=== PATIENT | female | born 1970 | race African-American/Black ===

== ENCOUNTER 2017-06-09 12:40 | Inpatient (IN) | payer MEDICAID ==
[~2017-06-09] VITALS: Ht 162.6 cm; Wt 90.7 kg
[2017-06-09 12:47] VITALS: BP 149/86
--- NOTE | 2017-06-09 13:06 | NUR ---
Blood draw completed by PHLE[facility] in [place].
[2017-06-09 13:28] LABS: HEMATOCRIT 43.3 % (36-48); HEMOGLOBIN 13.9 g/dL (12.0-16.0); MEAN CORPUSCULAR HEMOGLOBIN 28 pg (27-31); MEAN CORPUSCULAR HGB CONC 32 g/dL (33-37); MEAN CORPUSCULAR VOLUME 88 fL (80-94); PLATELET COUNT (AUTO) 340 K/uL (140-450); RED CELL DISTRIBUTION WIDTH 13.4 % (11.6-13.7); WHITE BLOOD COUNT (AUTO) 16.8 K/uL (4.8-10.8)
[2017-06-09 13:34] LABS: ANION GAP 12.2 (8-16); CALCIUM 9.1 mg/dL (8.5-10.1); CARBON DIOXIDE 27.5 mmol/L (21-32); POTASSIUM 3.7 mmol/L (3.5-5.1)
[2017-06-09 13:39] LABS: APPEARANCE,URINE SL CLOUDY (CLEAR); BILIRUBIN,URINE 2+ (NEGATIVE); BLOOD, URINE 3+ (NEGATIVE); COLOR,URINE BROWN (YELLOW); LEUKOCYTE ESTERASE ,URINE 1+ (NEGATIVE); NITRITE, URINE POSITIVE (NEGATIVE); PROTEIN,URINE 2+ (NEGATIVE); UGLUCOSE NEGATIVE (NEGATIVE)
[2017-06-09 13:40] LABS: BAND % (MANUAL) 9 % (0-8); EOSINOPHILS % (MANUAL) 1 % (0-4); LYMPHOCYTES % (MANUAL) 4 % (20-46); MONOCYTES % (MANUAL) 4 % (5-12); NEUTROPHILS % (MANUAL) 82 (43-65); TOTAL BILIRUBIN 0.8 mg/dL (0.0-1.0); TOTAL PROTEIN, SERUM 7.8 g/dL (6.4-8.2)
[2017-06-09 13:41] LABS: PLATELET ESTIMATE ADEQUATE
[2017-06-09 14:01] LABS: ICTOTEST POSITIVE (NEGATIVE)
[2017-06-09 14:02] LABS: BACTERIA,URINE 2+ /HPF (None Seen); MUCUS,URINE 2+ /LPF (None Seen); SQUAMOUS EPITHELIAL CELL,UR 4-10 (MOD) /LPF (0-3 (FEW))
--- NOTE | 2017-06-09 14:49 | NUR ---
Patient transferred to bed 4 via wheelchair by tech. RN evaluating patient at bedside.
--- NOTE | 2017-06-09 15:03 | NUR ---
46 YO FEMALE C/O ABDOMINAL PAIN /, VOMITIED X1, DENIES DIARRHEA, CONSTIPATION, NAUSEA, HAS SOME DISCOMFORT UPON URINATING, DENIES BURNING SENSATION. A&OX4, GURNEY TO LOWEST LEVEL, BED RAIL UP, DR. CULP AT BEDSIDE EVALUATING PT.
[2017-06-09] MEDS ORDERED: MORPHINE SULFATE 4 MG/ML SYR IVP ONE ×2 (15:10→16:30)
[2017-06-09] MEDS ORDERED: ONDANSETRON 4 MG/2 ML VIAL IVP ONE (15:10)
[2017-06-09] MEDS ORDERED: cefTRIAXone 1,000 MG VIAL ONE (16:22)
--- NOTE | 2017-06-09 16:30 | NUR ---
A&OX4, VSS, PT RESTING ON GURNEY, GURNEY TO LOWEST LEVEL, BED RAIL UP.
[2017-06-09] MEDS ORDERED: MAGNESIUM HYDROXIDE 2400 MG/30 ML UDC PO PRN (16:55)
[2017-06-09] MEDS ORDERED: ACETAMINOPHEN 325 MG TAB PO PRN (16:55)
[2017-06-09] MEDS: DEXT 5% /NACL 0.9% 1,000 ML IV SCH (16:55)
[2017-06-09] MEDS ORDERED: ONDANSETRON 4 MG/2 ML VIAL IVP PRN (16:55)
[2017-06-09] MEDS ORDERED: LORazepam 2 MG/ML VIAL IVP PRN (16:55)
--- NOTE | 2017-06-09 17:25 | NUR ---
KEY ACCOUNT EXECUTIVE SHOWING ST @109HR.
--- NOTE | 2017-06-09 17:33 | NUR ---
Patient will be admitted to care of DR. Suyapa FRANCO. Admited to TELE. Will go to room 105B. Belongings list completed. Report to GILLIAN ROBLES.
--- NOTE | 2017-06-09 17:55 | NUR ---
PT ON UNIT FROM ER. PT STATES SHE HAS PAIN 10/10 FROM HER ABDOMEN. PT WAS PREVIOUSLY MEDICATED IN ER. PT STATES SHE WANTS TO SEE IF THAT WORKS. AAOX4. NO S/S OF ACUTE DISTRESS. IV SITE PATENT AND INTACT. PT'S DAUGHTER AT BEDSIDE. PT ORIENTED TO ROOM. TELE BOX IN PLACE. FALL PRECAUTIONS IN PLACE. CALL LIGHT WITHIN REACH. SAFETY MEASURES ENSURED. WILL CONTINUE TO MONITOR.
[2017-06-09 17:59] VITALS: BP 136/86
--- NOTE | 2017-06-09 19:18 | NUR ---
REPORT GIVEN TO NIGHT NURSE, PT REMAINS STABLE.
--- NOTE | 2017-06-09 19:20 | NUR ---
RECEIVED PATIENT REPORT AT BEDSIDE. PATIENT IS ALERT, AWAKE, AND ORIENTED. PATIENT COMPLAINS OF ABDOMINAL PAIN. PATIENT WAS MEDICATED. IV ACCESS AT LEFT AC, INTACT WITH IVF INFUSING WELL. PATIENT ON TELE MONITORING. BED ON LOWEST POSITION, SIDE RAILS UP, SEMI-FOWLERS. CALL LIGHT WITHIN REACH. WILL CONTINUE TO MONITOR.
[2017-06-09 19:30] VITALS: BP 144/84
--- NOTE | 2017-06-09 20:00 | NUR ---
PATIENT STATES THAT MORPHINE DOES NOT RELIEVE HER PAIN. PATIENT WANTS TO TRY NORCO. WILL CONTINUE TO MONITOR
[2017-06-09] MEDS: HYDROcodone/APAP 5/325 MG 1 TAB TAB PO PRN (20:03)
[2017-06-09] MEDS: metroNIDAZOLE 500 MG/NS PREMIX 100 ML IV SCH (20:05)
[2017-06-09] MEDS: CEFEPIME 2,000 MG in DEXTROSE 5% 100 ML IV SCH (21:27)
[2017-06-09] MEDS: MORPHINE SULFATE 2 MG/ML SYR IVP PRN (21:35)
[2017-06-09] MEDS: DOXYCYCLINE 100 MG in DEXTROSE 5% 250 ML IV SCH (22:56)
--- NOTE | 2017-06-10 | NUR ---
CHECKED ON PATIENT. PATIENT WAS ASLEEP. NO S/SX OF DISTRESS
[2017-06-10 00:05] VITALS: BP 125/75
[2017-06-10 04:00] VITALS: BP 123/91
--- NOTE | 2017-06-10 04:00 | NUR ---
VITAL SIGNS CHECKED. VITAL SIGNS WITHIN NORMAL LIMITS. PATIENT STATES THAT PAIN HAS SUBSIDED. WILL CONTINUE TO MONITOR
[2017-06-10] MEDS: DEXT 5% /NACL 0.9% 1,000 ML IV SCH ×3 (05:18→23:11)
[2017-06-10] MEDS: metroNIDAZOLE 500 MG/NS PREMIX 100 ML IV SCH ×3 (05:22→20:06)
[2017-06-10 05:55] LABS: BASOPHILS # (AUTO) 0.1 K/uL (0.00-0.22); BASOPHILS % (AUTO) 0.8 % (0.0-2.0); EOSINOPHILS # (AUTO) 0.1 K/uL (0-0.4); EOSINOPHILS % (AUTO) 1.2 % (0.0-4.0); HEMATOCRIT 37.5 % (36-48); HEMOGLOBIN 12.4 g/dL (12.0-16.0); LYMPHOCYTES % (AUTO) 8.6 % (20.5-51.1); MEAN CORPUSCULAR HEMOGLOBIN 29 pg (27-31); MEAN CORPUSCULAR HGB CONC 33 g/dL (33-37); MEAN CORPUSCULAR VOLUME 89 fL (80-94); MONOCYTES # (AUTO) 0.8 K/uL (0.8-1.0); MONOCYTES % (AUTO) 7.2 % (1.7-9.3); NEUTROPHILS # (AUTO) 9.7 K/uL (1.8-7.7); NEUTROPHILS % (AUTO) 82.2 % (42.2-75.2); PLATELET COUNT (AUTO) 299 K/uL (140-450); RED BLOOD CELL COUNT(AUTO) 4.21 MIL/uL (4.20-5.40); RED CELL DISTRIBUTION WIDTH 13.5 % (11.6-13.7)
[2017-06-10 06:15] LABS: ANION GAP 8.9 (8-16); CALCIUM 8.5 mg/dL (8.5-10.1); CARBON DIOXIDE 29.4 mmol/L (21-32); POTASSIUM 3.3 mmol/L (3.5-5.1)
--- NOTE | 2017-06-10 07:18 | NUR ---
PATIENT REPORT GIVEN TO MORNING NURSE. PATIENT IS IN STABLE CONDITION.
--- NOTE | 2017-06-10 07:18 | NUR ---
RECEIVED REPORT FROM NIGHT NURSE, PT IS AAOX4, PT ON RA, IV TO L AC 20 G INFUSING WELL, SKIN IN TACT, SCDS NOTED, INITIAL ASSESSMENT DONE, ALL SAFETY PRECAUTIONS MET, CALL LIGHT IS WITHIN REACH, WILL CONTINUE TO MONITOR.
[2017-06-10 07:31] LABS: WHITE BLOOD COUNT (AUTO) 11.7 K/uL (4.8-10.8)
[2017-06-10 07:56] VITALS: BP 126/90
--- NOTE | 2017-06-10 08:08 | NUR ---
PATIENT HAS BEEN SCREENED AND CATEGORIZED HIGH NUTRITION RISK. PATIENT WILL BE SEEN WITHIN 1-2 DAYS OF ADMISSION. 06/10/17-06/11/[address]
[2017-06-10] MEDS: MORPHINE SULFATE 2 MG/ML SYR IVP PRN ×2 (08:26→12:53)
[2017-06-10] MEDS: CEFEPIME 2,000 MG in DEXTROSE 5% 100 ML IV SCH ×2 (08:26→21:34)
--- NOTE | 2017-06-10 08:36 | NUR ---
PT C/O PAIN / MEDICATED PT PER MD ORDERS. DUE MEDICATIONS GIVEN, PT TOLERATED WELL. ALL NEEDS MET, CALL LIGHT WITHIN IN REACH, WILL REASSESS.
[2017-06-10] MEDS: DOXYCYCLINE 100 MG in DEXTROSE 5% 250 ML IV SCH ×2 (10:35→22:59)
--- NOTE | 2017-06-10 10:35 | NUR ---
PT CURRENTLY RESTING COMFORTABLY IN BED, NO S/S OF DISTRESS
--- NOTE | 2017-06-10 10:35 | NUR ---
06/10/17 RD INITIAL ASSESSMENT COMPLETED PLEASE REFER TO NUTRITION ASSESSMENT UNDER CARE ACTIVITY FOR ESTIMATED NUTRITIONAL NEEDS. 1. CONTINUE REGULAR DIET 2. ADD HEALTH SHAKE BID 3. RD TO FOLLOW-UP 3-5 DAYS, MODERATE RISK ALINA PALMER RD
--- NOTE | 2017-06-10 11:40 | NUR ---
RUDY NOTE INITIAL REVIEW FAXED TO [facility] / FAX# [phone], ATTN: [facility] #[phone] TRACKING# [id number]
[2017-06-10] MEDS: HYDROcodone/APAP 5/325 MG 1 TAB TAB PO PRN ×4 (11:45→11:49)
[2017-06-10 12:00] VITALS: BP 131/98
[2017-06-10] MEDS ORDERED: POTASSIUM CHLORIDE 10 MEQ TABER PO SCH (12:30)
--- NOTE | 2017-06-10 13:17 | NUR ---
DUE MEDICATIONS GIVEN, PT UP AND EATING IN BED. PT USED RESTROOM AND CHANGED LINENS ON BED FOR PT. ALL SAFETY PRECAUTIONS MET, CALL LIGHT WITHIN REACH. WILL CONTINUE TO MONITOR.
--- NOTE | 2017-06-10 15:00 | NUR ---
DR. BROWN IN TO SEE PT, WILL FOLLOW UP WITH ANY NEW ORDERS.
--- NOTE | 2017-06-10 15:06 | NUR ---
PAGED DR. TT. VILLALPANDO AWAITING FOR CALL BACK
[2017-06-10] MEDS ORDERED: MORPHINE SULFATE 2 MG/ML SYR IVP PRN (15:10)
[2017-06-10 16:00] VITALS: BP 129/84
--- NOTE | 2017-06-10 17:00 | NUR ---
CHECKED IN ON PT, PT RESTING COMFORTABLY IN BED EATING DINNER. NO S/S OF DISTRESS. ALL SAFETY PRECAUTIONS MET, CALL LIGHT WITHIN REACH, WILL CONTINUE TO MONITOR.
--- NOTE | 2017-06-10 19:10 | NUR ---
REPORT GIVEN TO NIGHT NURSE, DISCUSSED PLAN OF CARE, PT IN STABLE CONDITION, NO S/S OF DISTRESS NOTED. ALL SAFETY PRECAUTIONS MET, CALL LIGHT WITHIN REACH.
--- NOTE | 2017-06-10 19:15 | NUR ---
RECEIVED PATIENT REPORT FROM MORNING NURSE. PATIENT ALERT, AWAKE AND ORIENTED. PATIENT IS IN STABLE CONDITION. IV ACCESS NOTED ON LEFT AC, SITE IS ASYMPTOMATIC AND PATENT. BED IN LOWEST POSITION WITH SIDE RAILS UP AND CALL LIGHT WITHIN REACH. PATIENT COMPLAINED OF HEADACHE. WILL MEDICATE.
--- NOTE | 2017-06-10 19:34 | NUR ---
SPOKE WITH DR VILLALPANDO AND INFORMED HIM ABOUT THE CONSULT ORDERED FOR THE PATIENT
[2017-06-10 19:54] VITALS: BP 145/94
[2017-06-10] MEDS: MORPHINE SULFATE 4 MG/ML SYR IVP PRN (20:09)
--- NOTE | 2017-06-10 22:22 | NUR ---
PATIENT SEEN BY DR VILLALPANDO
[2017-06-11] VITALS: BP 136/71
--- NOTE | 2017-06-11 00:41 | NUR ---
CONTINUITY OF CARE ENDORSED TO TRAVIS SPRINGER. PATIENT IN STABLE CONDITION.
[2017-06-11 02:05] VITALS: BP 132/80
[2017-06-11] MEDS: HYDROcodone/APAP 5/325 MG 1 TAB TAB PO PRN (02:05)
--- NOTE | 2017-06-11 02:10 | NUR ---
PT. AWAKE AT THIS TIME AND REQUESTED FOR PAIN RELIEVER. MEDICATED REQUESTED. A/O X. VERBALIZES WELL.
--- NOTE | 2017-06-11 03:40 | NUR ---
ENDORSED TO NEXT RN FOR CONTINUITY OF CARE. SLEEPING AT THIS TIME. A/O X 3 . ROM X 4.
--- NOTE | 2017-06-11 04:15 | NUR ---
INSERTED A NEW IV ACCESS ON THE RT FA#[id number]. CLEAR AND PATENT.
[2017-06-11] MEDS: metroNIDAZOLE 500 MG/NS PREMIX 100 ML IV SCH ×2 (04:24→13:22)
--- NOTE | 2017-06-11 05:00 | NUR ---
ASSISTED TO BATHROOM . VOIDED. BACK TO BED. IVF INFUSING WELL.
[2017-06-11 05:27] LABS: BASOPHILS # (AUTO) 0.1 K/uL (0.00-0.22); BASOPHILS % (AUTO) 0.9 % (0.0-2.0); EOSINOPHILS # (AUTO) 0.4 K/uL (0-0.4); HEMATOCRIT 37.2 % (36-48); HEMOGLOBIN 12.3 g/dL (12.0-16.0); LYMPHOCYTES # (AUTO) 1.4 K/uL (2.5-16.5); LYMPHOCYTES % (AUTO) 17.7 % (20.5-51.1); MEAN CORPUSCULAR HEMOGLOBIN 29 pg (27-31); MEAN CORPUSCULAR HGB CONC 33 g/dL (33-37); MEAN CORPUSCULAR VOLUME 89 fL (80-94); MONOCYTES # (AUTO) 0.4 K/uL (0.8-1.0); MONOCYTES % (AUTO) 5.1 % (1.7-9.3); NEUTROPHILS # (AUTO) 5.8 K/uL (1.8-7.7); NEUTROPHILS % (AUTO) 71.3 % (42.2-75.2); PLATELET COUNT (AUTO) 318 K/uL (140-450); RED CELL DISTRIBUTION WIDTH 13.5 % (11.6-13.7); WHITE BLOOD COUNT (AUTO) 8.1 K/uL (4.8-10.8)
[2017-06-11 05:35] VITALS: BP 135/85
[2017-06-11 05:54] LABS: ANION GAP 10.4 (8-16); CALCIUM 8.5 mg/dL (8.5-10.1); CARBON DIOXIDE 25.2 mmol/L (21-32); CREATININE 0.9 mg/dL (0.6-1.3); POTASSIUM 3.6 mmol/L (3.5-5.1)
--- NOTE | 2017-06-11 07:30 | NUR ---
RECEIVED PT IN BED. ASLEEP. AROUSABLE TO VOICE. ALERT ORIENTED X4. NO SOB DENIES ANY PAIN OR DISCOMFORT AT THIS TIME. POSITIVE BOWEL SOUNDS NOTED ON FOUR QUADRANTS. PT AMBULATORY WITH STAND BY ASSIST. SAFETY PRECAUTION IN PLACE. CALL LIGHT WITHIN REACH.
--- NOTE | 2017-06-11 07:30 | NUR ---
ENDORSED PT IN STABLE CONDITION TO AM NURSE.
[2017-06-11 08:00] VITALS: BP 130/80
[2017-06-11] MEDS: DEXT 5% /NACL 0.9% 1,000 ML IV SCH (08:35)
[2017-06-11] MEDS: MORPHINE SULFATE 4 MG/ML SYR IVP PRN (08:36)
[2017-06-11] MEDS: CEFEPIME 2,000 MG in DEXTROSE 5% 100 ML IV SCH (08:36)
--- NOTE | 2017-06-11 11:00 | NUR ---
PT AWAKE. TALKING ON THE PHONE. REQUESTED IF SHE CAN TAKE A SHOWER. ASSISTED PER SALES LEAD GOING TO SHOWER ROOM. PROVIDED WITH SHOWER MATERIALS. NO SOB NOTED. DENIES ANY PAIN OR DISCOMFORT AT THIS TIME. TELE MONITOR REMOVED. PT AMBULATORY WITH STANDBY ASSIST.
[2017-06-11] MEDS: DOXYCYCLINE 100 MG in DEXTROSE 5% 250 ML IV SCH (11:01)
[2017-06-11 12:00] VITALS: BP 149/93
--- NOTE | 2017-06-11 13:10 | NUR ---
PT FINISHED TAKING A SHOWER. PT WENT BACK TO ROOM ON STABLE CONDITION. NO SOB NOTED. DENIES ANY PAIN OR DISCOMFORT AT THIS TIME.
--- NOTE | 2017-06-11 14:58 | NUR ---
CALLED CM FROM [facility] PHONE [phone]. SHE SAID TO FAX REVIEWS TO [phone], FAXED CONCURRENT REVIEW TO HER. Addendum: 06/11/17 at 1500 by Farz[place]h Hill TRACKING NUMBER [id number]
[2017-06-11 16:00] VITALS: BP 121/95
--- NOTE | 2017-06-11 18:00 | NUR ---
PT WAS SEEN BY DR. JEFFERY, EXPLAINED CONDITION, PT RUSHED TO BE DISCHARGED. PT SIGNED AMA. ACCORDING TO PT SHE WILL GO TO [facility] ALREADY. IV CANNULA REMOVED AND INTACT. NAME ARMBAND REMOVED. PT LEFT GOING OUT OF THE HOSPITAL. WALKING WITH FAMILY. PAGED MELINDA DEAN. AWAITING CALL BACK TO LET MD KNOW.
--- NOTE | 2017-06-11 18:45 | NUR ---
CALLED DR. JEFFERY AT [phone] TO FOLLOW UP REGARDING PT SIGNED AMA, AND MADE HIM AWARE.
== END 2017-06-11 18:00 | disposition left against medical advice (07) | DRG 720 ==
LOC: MED 12:40 → MTU 17:05
PROVIDERS: ADMIT Preventive Medicine Preventive Medicine/Occupational Environmental Medicine; ATTEND Preventive Medicine Preventive Medicine/Occupational Environmental Medicine
DX: A41.9 Sepsis, unspecified organism (principal); E88.09 Other disorders of plasma-protein metabolism, not elsewhere classified; C56.1 Malignant neoplasm of right ovary; N39.0 Urinary tract infection, site not specified; N70.93 Salpingitis and oophoritis, unspecified; E66.9 Obesity, unspecified; Z68.34 Body mass index [BMI] 34.0-34.9, adult; N18.9 Chronic kidney disease, unspecified
CPT/HCPCS: 36415; 71010; 76856; 80048; 80053; 81001; 81025; 83690; 85025; 85651; 86140; 86304; 87040; 87081; 87086; 96365; 96375; 96376; 99285; J0692; J0696; J2270; J2405; J3490; J7030; J7042; J7060; Q0092

== ENCOUNTER 2017-06-25 10:46 | Emergency (ER) | payer MEDICAID ==
[~2017-06-25] VITALS: Ht 162.6 cm; Wt 89.8 kg
[2017-06-25 11:10] VITALS: BP 150/108
--- NOTE | 2017-06-25 11:31 | NUR ---
Geovanny winters in [facility] - 06/25/17 at 1138 by MED1 PT TAKEN TO BED7 VIA W/C WITH MOM
--- NOTE | 2017-06-25 11:37 | NUR ---
PT WHEELCHAIRED TO BED 7
--- NOTE | 2017-06-25 11:38 | NUR ---
46/F BIB MOM C/O DIARRHEA, VAG BLEEDING & ABDOMINAL PAIN X2 WEEKS. PT STATES SHE WAS ADMITTED TO HOSPITAL 2 WEEKS AGO FOR SAME S/SX. HX CKD, RECENT TX FOR SEPSIS, CA RIGHT OVARY. SKIN IS PINK/WARM/DRY; AAOX4 WITH EVEN AND STEADY GAIT; LUNGS CLEAR BL; HR EVEN AND REGULAR; PT DENIES ANY FEVER, CP, SOB, OR COUGH AT THIS TIME; PATIENT STATES PAIN OF 8/10 AT THIS TIME;PATIENT POSITIONED FOR COMFORT; HOB ELEVATED; BEDRAILS UP X2; BED DOWN. ER MD MADE AWARE OF PT STATUS.
--- NOTE | 2017-06-25 11:46 | NUR ---
Patient being evaluated by DR MENON at bedside.
[2017-06-25] MEDS ORDERED: NACL 0.9% 1,000 ML IV SCH (11:54)
[2017-06-25] MEDS ORDERED: MORPHINE SULFATE 4 MG/ML SYR IVP ONE ×2 (11:55→15:35)
[2017-06-25] MEDS ORDERED: ONDANSETRON 4 MG/2 ML VIAL IVP ONE (11:55)
[2017-06-25 12:29] LABS: BASOPHILS # (AUTO) 0.1 K/uL (0.00-0.22); BASOPHILS % (AUTO) 1.2 % (0.0-2.0); EOSINOPHILS # (AUTO) 0.6 K/uL (0-0.4); EOSINOPHILS % (AUTO) 7.5 % (0.0-4.0); HEMATOCRIT 38.8 % (36-48); HEMOGLOBIN 12.7 g/dL (12.0-16.0); LYMPHOCYTES % (AUTO) 12.8 % (20.5-51.1); MEAN CORPUSCULAR HEMOGLOBIN 29 pg (27-31); MEAN CORPUSCULAR HGB CONC 33 g/dL (33-37); MEAN CORPUSCULAR VOLUME 89 fL (80-94); MONOCYTES # (AUTO) 0.3 K/uL (0.8-1.0); MONOCYTES % (AUTO) 3.5 % (1.7-9.3); NEUTROPHILS # (AUTO) 5.5 K/uL (1.8-7.7); PLATELET COUNT (AUTO) 428 K/uL (140-450); RED BLOOD CELL COUNT(AUTO) 4.36 MIL/uL (4.20-5.40); RED CELL DISTRIBUTION WIDTH 13.7 % (11.6-13.7); WHITE BLOOD COUNT (AUTO) 7.5 K/uL (4.8-10.8)
[2017-06-25 12:44] LABS: ALBUMIN 3.1 g/dL (3.4-5.0); ANION GAP 9.3 (8-16); CARBON DIOXIDE 28.1 mmol/L (21-32); CREATININE 1.1 mg/dL (0.6-1.3); POTASSIUM 4.4 mmol/L (3.5-5.1); TOTAL BILIRUBIN 0.2 mg/dL (0.0-1.0)
[2017-06-25 13:44] LABS: APPEARANCE,URINE HAZY (CLEAR); BILIRUBIN,URINE NEGATIVE (NEGATIVE); COLOR,URINE YELLOW (YELLOW); LEUKOCYTE ESTERASE ,URINE NEGATIVE (NEGATIVE); NITRITE, URINE NEGATIVE (NEGATIVE); UGLUCOSE NEGATIVE (NEGATIVE)
[2017-06-25 13:50] LABS: BLOOD, URINE 1+ (NEGATIVE); RBC,URINE 0-5 (RARE) /HPF (0-5)
[2017-06-25 13:51] LABS: WBC,URINE 0-5 (RARE) /HPF (0-5)
--- NOTE | 2017-06-25 14:31 | NUR ---
Patient appears to be resting comfortably in bed. 160/112 AWARE. Respirations even and unlabored.WILL CONTINUE TO MONITOR. Addendum: 06/25/17 at 1433 by MED1 PT STS; NO HEADACHE OR DIZZINES AT THIS TIME.
--- NOTE | 2017-06-25 14:33 | NUR ---
Patient being reevaluated by DR MENON at bedside.
--- NOTE | 2017-06-25 15:02 | NUR ---
Patient being reevaluated by DR MENON at bedside.
[2017-06-25 16:11] VITALS: BP 149/96
--- NOTE | 2017-06-25 16:12 | NUR ---
Patient discharged with BP 149/96; DENIES HEADACHE OR DIZINESS' MD AWARE.. Written and verbal after care instructions given and explained. Patient alert, oriented and verbalized understanding of instructions. Ambulatory with steady gait. All questions addressed prior to discharge. ID band removed. Patient advised to follow up with PMD. Rx of NORCO & NAPROSYN given. Patient educated on indication of medication including possible reaction and side effects. Opportunity to ask questions provided and answered.
--- NOTE | 2017-06-25 16:13 | NUR ---
Note vijayazul in EDM - 06/25/17 at 1614 by [facility] Patient discharged with v/s stable. Written and verbal after care instructions given and explained. Patient alert, oriented and verbalized understanding of instructions. Ambulatory with steady gait. All questions addressed prior to discharge. ID band removed. Patient advised to follow up with PMD. Rx of NORCO & NAPROSYN given. Patient educated on indication of medication including possible reaction and side effects. Opportunity to ask questions provided and answered.
== END 2017-06-25 16:13 | disposition home or self-care (01) ==
LOC: MED 10:46
DX: I10 Essential (primary) hypertension (principal); R10.84 Generalized abdominal pain; Z85.43 Personal history of malignant neoplasm of ovary
CPT/HCPCS: 36415; 74177; 80053; 81001; 81025; 82150; 83605; 83690; 85025; 87040; 96361; 96374; 96375; 96376; 99291; J2270; J2405; J7030; Q9967

== ENCOUNTER 2017-07-05 12:17 | Emergency (ER) | payer MEDICAID ==
[~2017-07-05] VITALS: Ht 162.6 cm; Wt 104.3 kg
[2017-07-05 13:01] VITALS: BP 152/121
--- NOTE | 2017-07-05 13:23 | NUR ---
PATIENT PRESENTS TO ED WITH C/O HIGH BLOOD PRESSURE X 1 DAY WITH HEAD ACHE, ABDOMiNAL PAIN, BACK PAIN /10; SEND BY PMD D/T HIGH BP 196/144 AT THE CLINIC HX OF OVARIAN CA,HTN;RX OF HYDROCODONE, DIPHENHYDRAMINE . PT STATES SHE HAS SLIGHT DIZZINESS;SKIN IS PINK/WARM/DRY; AAOX4 WITH EVEN AND STEADY GAIT; LUNGS CLEAR BL; HR EVEN AND REGULAR; PT DENIES ANY FEVER, CP, SOB, OR COUGH AT THIS TIME; PATIENT STATES PAIN OF 6/10 AT THIS TIME;PATIENT POSITIONED FOR COMFORT; HOB ELEVATED; BEDRAILS UP X2; BED DOWN.ALL MONITORS IN PLACED;ER MD WILL BE NOTIFIED;
[2017-07-05] MEDS ORDERED: hydrALAZINE 20 MG/ML VIAL IVP ONE (13:55)
[2017-07-05] MEDS ORDERED: KETOROLAC 30 MG/ML VIAL IVP ONE (13:55)
[2017-07-05 14:40] LABS: BASOPHILS # (AUTO) 0.3 K/uL (0.00-0.22); EOSINOPHILS # (AUTO) 0.6 K/uL (0-0.4); HEMOGLOBIN 13.5 g/dL (12.0-16.0); LYMPHOCYTES # (AUTO) 1.2 K/uL (2.5-16.5); MEAN CORPUSCULAR HEMOGLOBIN 29 pg (27-31); MEAN CORPUSCULAR HGB CONC 33 g/dL (33-37); MEAN CORPUSCULAR VOLUME 88 fL (80-94); MONOCYTES # (AUTO) 0.7 K/uL (0.8-1.0); NEUTROPHILS # (AUTO) 5.3 K/uL (1.8-7.7); PLATELET COUNT (AUTO) 289 K/uL (140-450); RED BLOOD CELL COUNT(AUTO) 4.66 MIL/uL (4.20-5.40); RED CELL DISTRIBUTION WIDTH 13.6 % (11.6-13.7); WHITE BLOOD COUNT (AUTO) 8.1 K/uL (4.8-10.8)
--- NOTE | 2017-07-05 14:52 | NUR ---
BP WENT DOWN TO 156/75.NO ACUTE DISTRESS NOTED;WILL CONTNUE TO MONITOR PT.
[2017-07-05 14:53] LABS: ANION GAP 7.1 (8-16); CARBON DIOXIDE 30.9 mmol/L (21-32); CREATININE 0.8 mg/dL (0.6-1.3)
[2017-07-05 15:07] LABS: ALBUMIN 3.4 g/dL (3.4-5.0); THYROID STIMULATING HORMONE 2.91 uIU/mL (0.34-3.74); TOTAL BILIRUBIN 0.2 mg/dL (0.0-1.0)
--- NOTE | 2017-07-05 15:12 | NUR ---
PT RESTING ON BED;NO ACUTE DISTRESS NOTED;WILL CONTINUE TO MONITOR PT.
[2017-07-05 15:56] VITALS: BP 146/83
--- NOTE | 2017-07-05 15:56 | NUR ---
Patient discharged with v/s stable. Written and verbal after care instructions given and explained. Patient verbalized understanding. Ambulatory with steady gait. All questions addressed prior to discharge. Advised to follow up with PMD.
== END 2017-07-05 15:56 | disposition home or self-care (01) ==
LOC: MED 12:17
DX: I10 Essential (primary) hypertension (principal); R20.0 Anesthesia of skin; R19.00 Intra-abdominal and pelvic swelling, mass and lump, unspecified site; Z85.43 Personal history of malignant neoplasm of ovary; G51.0 Bell's palsy
CPT/HCPCS: 36415; 80053; 84443; 85025; 96374; 96375; 99284; J0360; J1885

== ENCOUNTER 2017-09-28 11:23 | Emergency (ER) | payer MEDICAID ==
[~2017-09-28] VITALS: Ht 160 cm; Wt 108.0 kg
[2017-09-28 11:35] VITALS: BP 164/113
[2017-09-28] MEDS ORDERED: IBUPROFEN 400 MG TAB PO ONE (12:10)
[2017-09-28 12:19] VITALS: BP 149/92
== END 2017-09-28 12:19 | disposition home or self-care (01) ==
LOC: MED 11:23
DX: T81.4XXA Infection following a procedure, initial encounter (principal); L03.311 Cellulitis of abdominal wall; Z48.01 Encounter for change or removal of surgical wound dressing; K59.00 Constipation, unspecified; R03.0 Elevated blood-pressure reading, without diagnosis of hypertension; Z85.43 Personal history of malignant neoplasm of ovary; Z90.710 Acquired absence of both cervix and uterus
CPT/HCPCS: 99283

== ENCOUNTER 2017-10-09 13:39 | Emergency (ER) | payer MEDICAID ==
[~2017-10-09] VITALS: Ht 165.1 cm; Wt 104.3 kg
[2017-10-09 14:10] VITALS: BP 163/101
--- NOTE | 2017-10-09 14:16 | NUR ---
pt to lobby awaiting for room for mse
--- NOTE | 2017-10-09 15:35 | NUR ---
PATIENT LEFT WITHOUT BEING SEEN BY DR. METZ. NO FURTHER CARE PROVIDED FOR PATIENT.
== END 2017-10-09 15:35 | disposition left against medical advice (07) ==
LOC: MED 13:39
DX: Z53.21 Procedure and treatment not carried out due to patient leaving prior to being seen by health care provider (principal)

== ENCOUNTER 2017-10-10 23:17 | Emergency (ER) | payer MEDICAID ==
[~2017-10-10] VITALS: Ht 165.1 cm; Wt 108.2 kg
[2017-10-10 23:28] VITALS: BP 143/99
--- NOTE | 2017-10-10 23:37 | NUR ---
PT TAKEN TO BED 12
--- NOTE | 2017-10-10 23:42 | NUR ---
46 Y/O F W/C/O YFN REMOVAL . PT STATES HAD A TOTAL HYSTERECTOMY ON 09/21/17 AND WAS TOLD TO REMOVE YFN 2 DAYS AGO, BUT SHE WAS [place] TOWN. PT DENIES ANY FEVER OR CHILLS, SLIGHTLY RED, DRY YELLOWISH DRANAIGE PRESENT ON INCISION.ER MADE AWARE.
[2017-10-11] MEDS ORDERED: KETOROLAC 30 MG/ML VIAL IM ONE (00:05)
[2017-10-11] MEDS ORDERED: NEOMYCIN/POLYMYXIN/BACITRACIN 0.9 GM/1 PKT TP ONE (00:05)
[2017-10-11] MEDS ORDERED: HYDROcodone/APAP 5/325 MG 1 TAB TAB PO ONE (00:05)
[2017-10-11 00:41] VITALS: BP 135/85
--- NOTE | 2017-10-11 00:41 | NUR ---
Patient discharged with v/s stable. Written and verbal after care instructions given and explained. Patient alert, oriented and verbalized understanding of instructions. Ambulatory with steady gait. All questions addressed prior to discharge. ID band removed. Patient advised to follow up with PMD. Rx of KEFLEX 500 MG, NORCO 5/325 MG, COLACE 100 MG, NEOSPONRIN OINTMENT given. Patient educated on indication of medication including possible reaction and side effects. Opportunity to ask questions provided and answered.
== END 2017-10-11 00:41 | disposition home or self-care (01) ==
LOC: MED 23:17
DX: L03.311 Cellulitis of abdominal wall (principal); Z48.01 Encounter for change or removal of surgical wound dressing; Z90.710 Acquired absence of both cervix and uterus; Z85.43 Personal history of malignant neoplasm of ovary
CPT/HCPCS: 96372; 99283; J1885